=== PATIENT | male | born 1990 | race Hispanic/Latino ===

== ENCOUNTER 2018-01-09 07:19 | Emergency (ER) | payer MEDICAID ==
[2018-01-09 07:54] LABS: APPEARANCE,URINE Clear (CLEAR); BILIRUBIN,URINE Negative (NEGATIVE); COLOR,URINE Yellow (YELLOW); GLUCOSE, URINE (UA) Negative (NEGATIVE); KETONES,URINE 15 mg/dL (NEGATIVE); LEUKOCYTE ESTERASE ,URINE Negative (NEGATIVE); NITRATE,URINE Negative (NEGATIVE); OCCULT BLOOD,URINE Moderate (NEGATIVE); PH,URINE 8.5 (5.0-8.0); PROTEIN,URINE Negative (NEGATIVE); UROBILINOGEN,URINE 0.2 mg/dL (0.2-1.0)
[2018-01-09 08:02] LABS: AMPHET/METH SCREEN,URINE NEGATIVE (NEGATIVE); BARBITURATE SCREEN, URINE NEGATIVE (NEGATIVE); BENZODIAZEPINES SCREEN,URINE POSITIVE (NEGATIVE); CANNABINOID SCREEN,URINE POSITIVE (NEGATIVE); COCAINE SCREEN,URINE NEGATIVE (NEGATIVE); OPIATE SCREEN,URINE NEGATIVE (NEGATIVE); PHENCYCLIDINE SCREEN,URINE NEGATIVE (NEGATIVE)
[2018-01-09 08:05] LABS: POTASSIUM 3.4 mmol/L (3.5-5.1)
[2018-01-09 08:11] LABS: ALBUMIN 3.8 g/dL (3.5-5.0); BILIRUBIN,DIRECT 0.1 mg/dL (0.0-0.3); BILIRUBIN,TOTAL 0.7 mg/dL (0.2-1.0); TOTAL PROTEIN, SERUM 7.2 g/dL (6.0-8.3)
[2018-01-09 08:31] LABS: BACTERIA,URINE Rare /HPF (None Seen); MUCUS,URINE Rare LPF (None Seen); SQUAMOUS EPITHELIAL CELL,UR Rare /HPF (0-2); WBC,URINE None Seen /HPF (0-1)
[2018-01-09 08:32] LABS: BASOPHILS % (AUTO) 0.4 % (0.0-5.0); EOSINOPHILS % (AUTO) 0.3 % (0.0-8.0); HEMATOCRIT 43.8 % (42-54); LYMPHOCYTES % (AUTO) 17.8 % (21.0-51.0); MEAN CORPUSCULAR HEMOGLOBIN 30.6 pg (27.0-33.0); MEAN CORPUSCULAR HGB CONC 34.4 g/dL (32.0-36.0); MEAN CORPUSCULAR VOLUME 88.8 fL (79-99); MONOCYTES % (AUTO) 5.5 % (3.0-13.0); PLATELET COUNT (AUTO) 236 K/uL (130-400); RED BLOOD CELL COUNT(AUTO) 4.93 MIL/uL (4.50-6.20); RED CELL DISTRIBUTION WIDTH 12.9 % (11.0-15.5); WHITE BLOOD COUNT (AUTO) 6.7 K/uL (4.8-10.8)
[2018-01-19] MEDS ORDERED: GABA-326 PO (11:23)
[2018-01-19] MEDS ORDERED: ALPR2TAB5 PO (11:23)
[2018-01-19] MEDS ORDERED: [UNRECOGNIZED DRUG - CODE] PO (11:23)
[2018-01-19] MEDS ORDERED: VITA1TAB39 PO (11:23)
[2018-01-19] MEDS ORDERED: LURA20TA PO (11:23)
== END 2018-01-09 09:07 | disposition home or self-care (01) ==
LOC: EDH 07:19
DX: F12.10 Cannabis abuse, uncomplicated (principal); R10.13 Epigastric pain
CPT/HCPCS: 36415; 80048; 80076; 80305; 81001; 83690; 85025

== ENCOUNTER 2018-01-20 06:53 | Day surgery (SDC) | payer MEDICAID ==
[~2018-01-20] VITALS: Ht 175.3 cm; Wt 85.0 kg
[~2018-01-20 06:53] MED LIST: ALPR2TAB5 PO; GABA-326 PO; LURA20TA PO; SODIUM CHLORIDE 0.9% 1000ML 1,000 ML IV ONE; VITA1TAB39 PO; [UNRECOGNIZED DRUG - CODE] PO
[2018-01-20 08:00] VITALS: BP 132/74
== END 2018-01-20 09:30 | disposition home or self-care (01) ==
LOC: ENDO 06:53 → DAH 06:53 → ENDO 09:30
PROVIDERS: ATTEND Internal Medicine
DX: K21.0 Gastro-esophageal reflux disease with esophagitis (principal); K29.50 Unspecified chronic gastritis without bleeding; B96.81 Helicobacter pylori [H. pylori] as the cause of diseases classified elsewhere; K31.89 Other diseases of stomach and duodenum; E78.00 Pure hypercholesterolemia, unspecified; F41.9 Anxiety disorder, unspecified; F32.9 Major depressive disorder, single episode, unspecified; Z79.899 Other long term (current) drug therapy
CPT/HCPCS: 43239; 88305; 88312 ×2; A4606; J7030

== ENCOUNTER → 2021-10-11 | Outpatient (CLI) | payer MEDICAID ==
[~2021-10-11] MED LIST changes: -ALPR2TAB5 PO; +ALPR2TAB9 PO; -GABA-326 PO; +GABA800T9 PO; -SODIUM CHLORIDE 0.9% 1000ML 1,000 ML IV ONE
== END | disposition home or self-care (01) ==
LOC: RAH 09:31
PROVIDERS: ATTEND Family Medicine
DX: K71.9 Toxic liver disease, unspecified (principal)
CPT/HCPCS: 74240